=== PATIENT | male | born 1975 | race African-American/Black ===

== ENCOUNTER 2016-04-20 10:48 | Observation (INO) ==
[2016-04-20] MEDS ORDERED: CeFAZolin Pre 2,000 MG/100 ML 2,000 MG/100 ML BAG IVPB ONE (11:00)
[2016-04-20] MEDS ORDERED: Ringers Solution, Lactated 1,000 ML IVC SCH (11:00)
[2016-04-20] MEDS ORDERED: Albuterol 2.5 MG/3 ML NEBULIZER IH ONE (11:00)
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
--- NOTE | 2016-04-20 11:26 | History & Physical Report ---
Date of Encounter: 04/20/16 Time of Encounter: 11:26 24 Hour HP Update - Instructions Instructions: If the History and Physical is less than 30 days old and was completed prior to A.M. admission and or procedure and has NOT been updated on calendar day of procedure please complete this update prior to performing procedure. - Update Patient reports changes in Medical Condition: No Changes in assessment/condition: No Changes in Medication: No Preop tests/diagnostics Reviewed: Yes Pre-Op MRSA Screen: Negative Surgery Remains Indicated: Yes Consent for Planned Operative Procedure(s) Verified: Yes - Pre-Operative Checklist Preoperative Checklist Indicated: No Prophylactic Antibiotic Ordered: Yes Home Medications Include Beta Khalida: No Beta Khalida Taken Today (Day of Surgery): No Beta Khalida Taken Yesterday (Day Prior to Surgery): No Is VTE Prophylaxis Indicated?: NO
--- NOTE | 2016-04-20 11:28 | Discharge Summary ---
Outpatient Proc Discharge Plan - Plan Additional Instructions: May shower in two days. Prescriptions: OxyCODONE/APAP 10/325 [Percocet 10/325 MG] 1 each PO Q6HR PRN #26 tablet PRN Reason: Pain Home Medications: Ciprofloxacin [Cipro] 500 mg PO BID #14 tablet 01/16/15 [Rx] MetroNIDAZOLE [Flagyl] 500 mg PO BID #14 tablet 01/16/15 [Rx] OxyCODONE/APAP 5/325 [Percocet 5/325] 1 each PO Q4HR PRN #15 tablet 01/17/15 [Rx ] Naproxen [Naprosyn] 500 mg PO BID #20 tablet 03/14/15 [Rx] OxyCODONE/APAP 10/325 [Percocet 10/325 MG] 1 each PO Q6HR PRN #26 tablet [Rx]
[2016-04-20] MEDS ORDERED: *HR* Propofol 200 MG/20 ML VIAL IVP ONE (11:46)
[2016-04-20] MEDS ORDERED: *HR* FentaNYL (PF) 100 MCG/2 ML VIAL ONE ×2 (11:46→12:31)
[2016-04-20] MEDS ORDERED: *HR* Rocuronium Bromide 50 MG/5 ML VIAL ONE (11:47)
[2016-04-20] MEDS ORDERED: Lidocaine -MPF 2% 2 ML VIAL ONE (11:47)
[2016-04-20] MEDS ORDERED: Ondansetron 4 MG/2 ML VIAL ONE (11:47)
[2016-04-20] MEDS ORDERED: *HR* Midazolam HCl 2 MG/2 ML VIAL ONE (11:47)
[2016-04-20] MEDS ORDERED: Dexamethasone 4 MG/ML VIAL ONE (11:47)
[2016-04-20] MEDS ORDERED: *HR* Succinylcholine 200 MG/10 ML VIAL IVP ONE (11:47)
[2016-04-20] MEDS ORDERED: Bupivacaine/EPI 1:200k 0.25%PF 30 ML VIAL ONE (12:09)
[2016-04-20] MEDS ORDERED: *HR* OxyCODONE/APAP 10/325 TABLET PO ONE (12:37)
[2016-04-20] MEDS ORDERED: *HR* Promethazine 25 MG/ML VIAL IVP PRN (12:40)
--- NOTE | 2016-04-20 12:41 | Operative Note ---
Date of procedure: 04/20/16 Pre-op diagnosis: Recurrent pilonidal cyst Post-op diagnosis: same Procedure: Deep debridement of recurrent pilonidal cyst Anesthesia: TARI Surgeon: Tu Dunbar Plastic Cutter: Kelly Miller Plastic Cutter Other: DONNA Dunn Condition: stable Disposition: PACU Procedure in Detail: Date of surgery: 04/20/16 After properly identifying the patient, the patient was brought to the operative room and placed in supine position. After proper sedation was achieved followed by general endotracheal intubation, the patient was placed in a prone position and the pilonidal region was prepped and draped in normal fashion. A timeout was performed noting the patient's name and procedure to be performed. Examination demonstrated what initially appeared to be a healed pilonidal cystectomy wound, however there was a small opening present over the epithelial tissue and probing demonstrated that this was a superficial epithelial tissue covering a cavity where granulation tissue was present. The decision was made to go ahead and excise this old granulation tissue by incising the oval area with a 15 blade scalpel. Bovie cauterization was then used to maintain hemostasis and dissect out this old scar/granulation tissue down to its origin in the deep subcutaneous tissue overlying the periosteum of the sacrum. Tissue was excised for pathological evaluation and Bovie cauterization was used to maintain hemostasis. The length of the wound was approximately 3.4 x 1.5 x 1.5 cm. The wound was packed with one-inch plain Nu Gauze and cover with 4 x 4 gauze. Needle, sponge, and instrument counts were correct 2 and the patient was transported to the stretcher in a supine position. The patient was aroused by IV sedation, extubated in the operating room without complication, and transported to the recovery room in stable condition.
[2016-04-20] MEDS: *HR* HYDROmorphone (PF) 1 MG/ML SYRINGE IVP PRN ×2 (13:10→13:20)
[2016-04-20] MEDS ORDERED: Aspirin 325 MG TABLET PO ONE (14:00)
[2016-04-20] MEDS ORDERED: Aspirin 325 MG TABLET ONE (14:02)
--- NOTE | 2016-04-20 15:39 | Event Note ---
Date of Encounter: 04/20/16 Time of Encounter: 15:35 Patient with post operative chest pain symptoms. Anesthesia had an opportunity to talk with Cardiolgoy regarding the patient, who ordered an EKG which did note mild T wave changes. Patient's father does have a history of [place] prior to age 50. Repeat EKG demonstrated same changes. The recommendation is to keep him overnight. Cardiology formally consulted. Patient to be placed on observation/telemetry.
--- NOTE | 2016-04-20 15:42 | Cardiology Consult Note ---
Date of Encounter: 04/20/16 Time of Encounter: 16:00 Assessment and Plan (1) Chest pain Current Visit: Yes Status: Acute Ruleout UT w serial troponin. If elevated, start anticoagulation. He was given aspirin. Pretest probability is intermediate given risk factors. Qualifiers: Chest pain type: chest pain due to myocardial ischemia Ischemic chest pain type: unstable angina pectoris Qualified Code(s): I20.0 - Unstable angina (2) Dyslipidemia Current Visit: Yes Status: Acute Patient to be initiated on statin therapy. (3) Pilonidal abscess Current Visit: Yes Status: Acute s/p surgery Discussion w patient/family: The assessment and plan as outlined above was discussed with the patient and/or family members who expressed understanding and agreement. All questions were answered. Thank you for involving us in the care of your patient. Please call with any questions. History of Present Illness Consult date: 04/20/16 Consult reason: Chest pain History of present illness: Mr. Yeung is a 41 year old male with no previous cardiac history who is immediately postop from pilonidal abscess surgery. He has complaint of severe retrosternal chest discomfort described as a pressure that has improved with time and aspirin down to a 5/10 but it persists. He notes this chest discomfort every other day over last year and is uncertain if it is worsening. He seems to minimalize symptoms. He notes remote stress test without ischemia. He did not admit to these symptoms prior to surgery. The discomfort has radiation across the chest. He is sedentary with his "physical activity" consisting of playing video games on a playstation. He also has dyslipidemia, was a smoker and has premature family history. Past Med Surg Social Fam HX - Past Medical History Medical history: hyperlipidemia, other Psychiatric history: no psych history - Past Surgical History Surgical History: other - Social History Smoking Status: Current some day smoker Packs per day: using nicotine patch to quit Smokeless Tobacco Status: No Alcohol use: none Drug use: none - Family History Father Hx Family Cardiac Disorders: Yes (Heart dx) Medications and Allergies Atorvastatin Calcium [Lipitor] 20 mg PO DAILY 04/20/16 [History] BuPROPion SR (12 HR) [Wellbutrin SR] 150 mg PO BID 04/20/16 [History] Nicotine Patch [Nicoderm] 14 mg TD DAILY 04/20/16 [History] OxyCODONE/APAP 10/325 [Percocet 10/325 MG] 1 each PO Q6HR PRN #26 tablet [Rx] Allergies No Known Allergies Allergy (Unverified 11/15/14 18:40) All Systems Review: A 10-system review of systems was performed and is negative for pertinent findings except as documented above in the HPI. - Constitutional Constitutional: no chills, no fever(s) - EENT Eyes: no blurred vision, no loss of vision Nose, mouth and throat: no bleeding gums, no epistaxis - Cardiovascular Cardiovascular: chest pain at rest, no diaphoresis, no syncope - Respiratory Respiratory: no dyspnea, no hemoptysis - Gastrointestinal Gastrointestinal: no coffee ground emesis, no hematemesis - Genitourinary Genitourinary: no dysuria, no hematuria - Musculoskeletal Musculoskeletal: no arthralgias, no myalgias - Integumentary Integumentary: no erythema, no rash - Neurological Neurological: no focal weakness, no loss of vision - Psychiatric Psychiatric: no anxiety, no depression - Hematological/Lymphatic Hematologic/Lymphatic: no easy bleeding, no easy bruising Physical Examination Vital Signs, Last 4 Hours Temp Pulse Resp BP Pulse Ox 04/20/16 15:15 79 16 128/88 99 04/20/16 14:45 97.7 F 74 16 133/89 99 04/20/16 14:15 79 16 117/82 97 04/20/16 13:45 97.7 F 86 16 118/87 94 L 04/20/16 13:38 97.9 F 81 18 106/85 93 L 04/20/16 13:28 97.8 F 90 20 116/90 94 L 04/20/16 13:18 95 22 108/83 96 04/20/16 13:08 98 22 109/82 93 L 04/20/16 13:03 118 20 138/90 94 L 04/20/16 12:58 97.8 F 110 20 127/94 100 General: Conversant HEENT: Atraumatic, Normocephaly Neck: No JVD Cardiac: Reg Rate and Rhythm Lungs: Normal Breath Sounds Neuro: Alert and responsive Abdomen: Soft Skin: No rashes noted on visualized skin Extremities: No Edema Results 04/21/16 03:37 04/21/16 03:37 Consult Discharge Plan - Plan Additional Instructions: May shower in two days. Referrals: Ifeoma Carpio CNP [Primary Care Provider] - Prescriptions: OxyCODONE/APAP 10/325 [Percocet 10/325 MG] 1 each PO Q6HR PRN #26 tablet PRN Reason: Pain
--- NOTE | 2016-04-20 15:46 | Anesthesia Evaluation Post Op ---
Date of Encounter: 04/20/16 Time of Encounter: 15:44 - Vital Signs Vital Signs: Vital Signs/O2 Sat, Most Current Temp Pulse Resp BP Pulse Ox 97.7 F 79 16 128/88 99 04/20/16 14:45 04/20/16 15:15 04/20/16 15:15 04/20/16 15:15 04/20/16 15:15 - Lungs Lungs: Clear Ascult./Percussion - Airway Airway: Non-obstructed - Cardiovascular New Rhythm, Treatment Ordered - Mental Status Mental Status: Alert & Oriented, Answers Appropriately - Pain Pain Scale: 6 (Chest pain, admitted with cardiology consult) Pain Scale used: Numeric (1 - 10) - Nausea Vomiting Nausea Vomiting: Not Present - Hydration Hydration: Tolerates oral liquids, Has not voided - Discharge PostOp Status: Transfer Patient to floor ([id number])
[2016-04-20] MEDS ORDERED: Ondansetron 4 MG/2 ML VIAL IVP PRN (17:02)
[2016-04-20] MEDS: 0.9 % Sodium Chloride 1,000 ML IVC SCH (18:27)
[2016-04-20] MEDS: *HR* Heparin 5,000 UNIT/ML VIAL SQ SCH (18:28)
[2016-04-20] MEDS: *HR* OxyCODONE/APAP 10/325 TABLET PO PRN (18:33)
[2016-04-21 05:10] LABS: Basophils % 0.2 %; Eosinophils % 0.3 %; Hemoglobin 13.7 g/dL (12.9-16.9); Immature Granulocytes % 0.2 % (0-4); Lymphocytes # 1.3 K/mcL (0.6-4.6); Lymphocytes % 13.2 %; Mean Corpuscular HGB Conc 33.4 g/dL (31.6-35.5); Mean Corpuscular Hemoglobin 30.6 pg (28.0-33.3); Mean Corpuscular Volume 91.7 fL (83.0-100.0); Mean Platelet Volume 11.4 fL (9.4-12.4); Monocytes # 0.7 K/mcL (0.0-1.3); Monocytes % 6.8 %; Neutrophils # 7.6 K/mcL (1.6-8.9); Platelet Count 253 K/mcL (140-400); Red Blood Count 4.47 M/mcL (4.19-5.50); Red Cell Distribution Width 12.4 % (11.5-14.5); Segmented Neutrophils % 79.3 %
[2016-04-21 05:23] LABS: BUN/Creatinine Ratio 8 (6-26); Blood Urea Nitrogen 10 mg/dL (8-26); Calcium 9.1 mg/dL (8.6-10.8); Carbon Dioxide 23 mEq/L (19-29); Chloride 106 mEq/L (98-109); Glucose 118 mg/dL (70-99); Osmolality,Calculated 292 (280-300); Potassium 4.3 mEq/L (3.5-4.5); Sodium 141 mEq/L (136-145); eGFR For African Americans > 60 (> 60); eGFR For Non-African Americans > 60 (> 60)
[2016-04-21] MEDS: *HR* Heparin 5,000 UNIT/ML VIAL SQ SCH ×2 (05:47→19:07)
[2016-04-21] MEDS: *HR* OxyCODONE/APAP 10/325 TABLET PO PRN ×2 (08:40→18:16)
[2016-04-21] MEDS ORDERED: Pantoprazole 40 MG VIAL IVP SCH (09:00)
--- NOTE | 2016-04-21 11:33 | General Surgery Progress Note ---
<Jan Arellano - Last Filed: 04/21/16 11:31> Date of Encounter: 04/21/16 Time of Encounter: 08:50 - Assessment and Plan (1) Pilonidal abscess Current Visit: Yes Status: Acute Post op day #1 Status post deep debridement of recurrent pilonidal cyst Continue dressing changes. Continue DVT prophylaxis Continue GI prophylaxis (2) Chest pain Current Visit: Yes Status: Acute Nuclear stress test planned for tomorrow. Qualifiers: Chest pain type: chest pain due to myocardial ischemia Ischemic chest pain type: unstable angina pectoris Qualified Code(s): I20.0 - Unstable angina (3) Dyslipidemia Current Visit: Yes Status: Acute Management per cardiology. Patient started on Crestor. Subjective Patient reports: no new complaints, feels better, voiding w/o difficulty, flatus , no bowel movement, afebrile Narrative: The patient denies having any chest pain this morning. Objective Vital Signs - Last 8 Hours Temp Pulse Resp BP Pulse Ox 04/21/16 07:56 97.9 F 85 20 126/74 94 L 04/21/16 04:12 97.4 F L 67 16 109/62 96 Intake and Output 04/20/16 04/21/16 04/21/16 23:59 07:59 15:59 Other: Meal NPO for breakfast Weight 109.769 kg - General physical appearance well developed, well nourished, no distress - Eyes normal ocular movement - ENT normal mucosa - Neck Neck exam: trachea midline - Respiratory normal respiratory effort, clear to auscultation - Cardiovascular Cardiovascular exam: Present: RRR - Abdomen Abdomen: Present: bowel sounds present, soft, non tender - Integumentary no rash - Neurologic CN 2-12 grossly intact - Musculoskeletal normal posture - Psychiatric oriented to time, oriented to person, oriented to place, speech is normal, memory intact - Labs 04/21/16 03:37 04/21/16 03:37 Diabetes panel 04/21/16 Range/Units 03:37 Sodium 141 (136-145) mEq/L Potassium 4.3 (3.5-4.5) mEq/L Chloride 106 (98-109) mEq/L Carbon Dioxide 23 (19-29) mEq/L BUN 10 (8-26) mg/dL Creatinine 1.30 H (0.72-1.25) mg/dL Glucose 118 H (70-99) mg/dL Calcium 9.1 (8.6-10.8) mg/dL Calcium panel 04/21/16 Range/Units 03:37 Calcium 9.1 (8.6-10.8) mg/dL Pituitary panel 04/21/16 Range/Units 03:37 Sodium 141 (136-145) mEq/L Potassium 4.3 (3.5-4.5) mEq/L Chloride 106 (98-109) mEq/L Carbon Dioxide 23 (19-29) mEq/L BUN 10 (8-26) mg/dL Creatinine 1.30 H (0.72-1.25) mg/dL Glucose 118 H (70-99) mg/dL Calcium 9.1 (8.6-10.8) mg/dL Adrenal panel 04/21/16 Range/Units 03:37 Sodium 141 (136-145) mEq/L Potassium 4.3 (3.5-4.5) mEq/L Chloride 106 (98-109) mEq/L Carbon Dioxide 23 (19-29) mEq/L BUN 10 (8-26) mg/dL Creatinine 1.30 H (0.72-1.25) mg/dL Glucose 118 H (70-99) mg/dL Calcium 9.1 (8.6-10.8) mg/dL - VTE Documentation of Mechanical Device: Intermittent pneumatic compression device Consult Discharge Plan - Plan Additional Instructions: May shower in two days. Referrals: Ifeoma Carpio, DIRECTOR OF MARKET ANALYSIS [Primary Care Provider] - Prescriptions: OxyCODONE/APAP 10/325 [Percocet 10/325 MG] 1 each PO Q6HR PRN #26 tablet PRN Reason: Pain - Attending Attestation I examined this patient and my medical decision-making was reviewed with the PUMP OPERATOR [employer]/PA/Advanced Practice Nurse/Resident Physician. I agree with the documented findings, disposition and treatment plan as described except to the extent set forth below. <Tu Dunbar - Last Filed: 04/21/16 13:11> Objective Vital Signs - Last 8 Hours Temp Pulse Resp BP Pulse Ox 04/21/16 11:43 98.0 F 67 16 118/72 95 04/21/16 07:56 97.9 F 85 20 126/74 94 L Intake and Output 04/20/16 04/21/16 04/21/16 23:59 07:59 15:59 Other: Meal NPO for breakfast Weight 109.769 kg - Labs 04/21/16 03:37 04/21/16 03:37 Diabetes panel 04/21/16 Range/Units 03:37 Sodium 141 (136-145) mEq/L Potassium 4.3 (3.5-4.5) mEq/L Chloride 106 (98-109) mEq/L Carbon Dioxide 23 (19-29) mEq/L BUN 10 (8-26) mg/dL Creatinine 1.30 H (0.72-1.25) mg/dL Glucose 118 H (70-99) mg/dL Calcium 9.1 (8.6-10.8) mg/dL Calcium panel 04/21/16 Range/Units 03:37 Calcium 9.1 (8.6-10.8) mg/dL Pituitary panel 04/21/16 Range/Units 03:37 Sodium 141 (136-145) mEq/L Potassium 4.3 (3.5-4.5) mEq/L Chloride 106 (98-109) mEq/L Carbon Dioxide 23 (19-29) mEq/L BUN 10 (8-26) mg/dL Creatinine 1.30 H (0.72-1.25) mg/dL Glucose 118 H (70-99) mg/dL Calcium 9.1 (8.6-10.8) mg/dL Adrenal panel 04/21/16 Range/Units 03:37 Sodium 141 (136-145) mEq/L Potassium 4.3 (3.5-4.5) mEq/L Chloride 106 (98-109) mEq/L Carbon Dioxide 23 (19-29) mEq/L BUN 10 (8-26) mg/dL Creatinine 1.30 H (0.72-1.25) mg/dL Glucose 118 H (70-99) mg/dL Calcium 9.1 (8.6-10.8) mg/dL - Attending Attestation Patient denies ay issues with chest pain or pain from the pilonidal area. to perform dressing changes. Await results of nuclear stress test to be performed at 130pm.
--- NOTE | 2016-04-21 11:58 | Electrocardiograph Report ---
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
[2016-04-21] MEDS ORDERED: *HR* Midazolam HCl 2 MG/2 ML VIAL ONE (14:36)
[2016-04-21] MEDS ORDERED: Heparin 1,000 UNITS/500 mL NS 500 ML ONE (14:37)
[2016-04-21] MEDS ORDERED: 0.9 % Sodium Chloride 1,000 ML ONE ×2 (14:37→15:24)
[2016-04-21] MEDS ORDERED: *HR* FentaNYL (PF) 100 MCG/2 ML VIAL ONE (14:37)
[2016-04-21] MEDS ORDERED: *HR* Heparin 10,000 UNIT/10 ML VIAL ONE (14:37)
[2016-04-21] MEDS ORDERED: Nitroglycerin 1,000 MCG/10 ML VIAL IV ONE (14:37)
[2016-04-21 15:17] LABS: Prothrombin Time 11.1 Seconds (9.4-12.1)
--- NOTE | 2016-04-21 15:49 | Exercise Stress Test ---
Dobutamine Stress Echo No Doppler Name: Lior Yeung Date of Study: 04/21/2016 Date: 1975 Ht: 73.0in Medical Record#: [id number] Age: 41 Wt: 240.0lb Gender: Male BSA: 2.33 Order #: [id number] Location: [facility] Room #: 3B54 Reading Physician: Noel Meza MD, [facility] Office Auditor: Shazia Pop RDCS, RVT Supervising Provider: Rashid Beach CNP Primary Physician: Ifeoma Carpio CNP Ordering Physician: Andrew Shaw MD, [facility] Indications: Chest pain Impressions: Normal left ventricular systolic function, LVEF 60%. After 3 minutes of low dose dobutamine, the patient developed moderate chest pain. ECG demonstrated sinus bradycardia (53 bpm) with non-specific ST-T wave changes. The study was stopped. Only resting echo images were obtained. Ordering physician (Dr. Shaw) was notified. Findings: Stress Echo * Baseline ECG demonstrated sinus rhythm, mild non-specific ST-T wave abnormality. * No arrhythmias noted prior to exam beginning. * Normal left ventricular systolic function, LVEF 60%. * After 3 minutes of low dose dobutamine, the patient developed moderate chest pain. ECG demonstrated sinus bradycardia (53 bpm) with non-specific ST-T wave changes. The study was stopped. Only resting echo images were obtained. Left Ventricular Wall Motion: Rest Echo Findings All wall segments showed normal motion. Stress Test Summary: Stress System: Antonio Stress Test Type: Pharmacologic Baseline Information: Initial Heart Rate: 66 Predicted Max HR: 178 Blood Pressure: 120 / 76 Stress Information: Test Terminated Due to: Chest pain Maximum Blood Pressure: 160/ 68 Maximum Heart Rate: 70 Percent Maximum Heart Rate Achieved: 39 Double Product: [id number] History: Hypercholesteremia History of Smoking Packs 20 Years 1 Family History of CAD Previous Echo03/18/2014 Updated by Noel Meza MD, [facility] on 04/21/2016 3:42:03 PM electronically signed on 04/21/2016 3:43:45 PM with status of Final
--- NOTE | 2016-04-21 16:03 | Invasive Diagnostic Lab Proc ---
Name: Lior Yeung Date of Study: 04/21/2016 Date: 1975 Ht: 72.8in Medical Record#: [id number] Age: 41 Wt: 240.74lb Gender: Male BSA: 2.32 Order #: [id number] BMI: 31.94 Physicians Procedure Physician: Florence Pal MD, [facility] Referring MD: Referring MD: Staff Name Position Time In Sarah Jaquez RT (R) Monitor 03:28 PM Santi Jaimes RN Sales Marketing Manager 03:28 PM Marita Walsh RT Scrub 03:28 PM Indications Indication Abnormal Test - Stress Procedures Performed Procedure L HRT ARTERY/VENTRICLE ANGIO Pre-Procedure Checklist Informed consent is complete signed and on chart. H\\T\\P is on chart. ID band is on and ID verified with patient. Patient NPO for procedure The procedure was described for the patient and questions were answered. Blood Pressure: 118/73 ECG is on chart. Rhythm: NSR Plan of Care Patient will tolerate the procedure without complications. Adequate level of comfort will be maintained. Hemodynamics will remain stable Patient will recover from procedure without complications. Respiratory function will be maintained. Cardiac rhythm will remain stable. Patient temperature will be maintained. Patient and/or family have verbalized understanding of the procedure. Patient Education Chief Complaint/Reason for Test: Cardiac Cath Developmental Category: Adult (18-64 years) Developmentally Appropriate for Age: Yes Learning Barriers: None Education Needs: Procedure Education Method: Verbal Information Taught: Cardiac Cath Educational Evaluation: Able to repeat information Intravenous Access Time IV Size Location DC'd Fluid/Drip Rate Units RN 02:46 PM 20g 1 02/24" Patent On Arrival Lt Hand 0.9NaCl 25 ml/hr Santi Jaimes RN Allergies No Known Allergies Vital Signs Time BP (mmHg) HR (bpm) O2 Sat. RR (bpm) LOC 02:46 PM 118 / 72 67 95 % 16 03:29 PM / % 5 = Fully awake and oriented or at pre-proc level 03:28 PM 133 / 93 64 100 % 03:33 PM 133 / 81 72 98 % 25 03:38 PM 132 / 80 68 100 % 27 03:43 PM 136 / 87 67 99 % 27 03:48 PM 132 / 85 65 99 % 22 Procedural Medications Time Medication Dose Units Method Given By 03:29 PM Oxygen 2 L/min nasal cannula Santi Jaimes RN 03:29 PM Versed 2 mg Intravenous Santi Jaimes RN 03:29 PM Fentanyl 50 mcg Intravenous Santi Jaimes RN 03:35 PM Lidocaine 2% 20 ml Subcutaneous Florence Pal MD, [facility] ASA Classification: CLASS II- Mild systemic disease (i.e. well-controlled diabetes, hypertension, asthma, cigarette smoking) Jl Score Preprocedure Postprocedure Activity 2- Moves 4 extremities sustained head lift Activity 2- Moves 4 extremities sustained head lift Circulation 2- SBP +/= 20 points of pre-anesthetic level Circulation 2- SBP +/= 20 points of pre-anesthetic level Consciousness 2- Awake and alert oriented x 3 Consciousness 2- Awake and alert oriented x 3 O2 Saturation 2- Able to maintain O2 satruation of 92% on room air O2 Saturation 2- Able to maintain O2 satruation of 92% on room air Respiratory 2- Able to deep breathe and cough well Respiratory 2- Able to deep breathe and cough well Total Score 10 Total Score 10 Contrast Agent: Isovue Diagnostic Contrast: 57 ml Total Contrast: 57 ml Fluoro Dose: 293 mGy Procedure Log Time Note Enter By 03:27 PM CathStat 03: PM Vitals capture started with the following parameters, Patient=Adult, Interval=5 min, Initial Zubeweuj=697 mmHg, Deflation Rate=5 mmHg, Cuff placed on Left Arm 03: PM HR=64 bpm, UPAC=356/93 mmhg, PiA1=538.0 % 03: PM Pt arrived to laboratory immunologist 2 at 15:28 twilson : PM Physician arrived 15:28 : PM Meet and greet completed : PM Sign in performed according to hospital policy. : PM Procedure start 15:28 ilson :28 PM ASA Class CLASS II- Mild systemic disease (i.e. well-controlled diabetes, hypertension, asthma, cigarette smoking) tw:28 PM Patient charges- Angio tray pack, Navilyst 3mm J, Pulse Oximetry and ACIST tubing and transducer twilson :28 PM IV Supplies used: J loop Angio Cath. tw 03:28 PM Sraah Jaquez RT (R) Position: Monitor Time in: 15:28 :28 PM Santi Jaimes RN Position: Sales Marketing Manager Time in: 15: 03: PM Marita Walsh Position: Scrub Time in: 15: 03: PM Case Delayed no PM Time: 15: Oxygen on at 2 L/min per nasal cannula by Santi Jaimes RN : PM Time: 15:29 Patient comfortable and pain free: Yes : PM Time: 15:29LOC: 5 = Fully awake and oriented or at pre-proc level tw: PM Time: 15:29 Versed 2 mg Intravenous Given by Santi Jaimes RN arnaldo : PM Time: 15:29 Fentanyl 50 mcg Intravenous Given by Santi Jaimes RN arnaldo 03:30 PM Hair removed from procedure site in procedure lab using clippers. Bilateral groin prepped with Chloraprep by Sarah Storey (R), safety strap applied then patient was draped. Skin intact. tw 03:31 PM Recorded ECG: HR=71 Condition=Condition 1 03:33 PM HR=72 bpm, HSUN=913/81 mmhg, SpO2=98.0 %, Resp=25 B/min 03:35 PM Time out performed according to hospital policy ts 03:35 PM Time: 15:35 20 ml Lidocaine 2% to right groin Subcutaneous Given by Florence Pal MD, [facility] tsites 03:38 PM Access obtained by percutaneous puncture. 5Fr 10cm Terumo Spencer sheath placed in right Femoral artery. [id number] tsites 03:38 PM HR=68 bpm, OXVG=340/80 mmhg, HhD6=518 %, Resp=27 B/min 03:38 PM 5Fr FL 4 catheter inserted over the wire DN tsites 03:38 PM 0.035 145cm Navilyst 3mmJ wire [id number] tsites 03:39 PM LCA angiography performed in multiple views. tsites 03:39 PM Recorded Pressure: Ao, HR=66, Condition=Condition 1 (Aorta) Ao 62/45/53 03:40 PM wire reinserted catheter removed tsites 03:41 PM RCA angiography performed in multiple views. tsites 03:42 PM wire reinserted catheter removed tsites 03:42 PM 5Fr Pigtail catheter inserted over the wire DNC tsites 03:43 PM HR=67 bpm, LYHN=701/87 mmhg, SpO2=99.0 %, Resp=27 B/min 03:43 PM Pressure channel 1 zeroed. 03:43 PM Recorded Pressure: LV, HR=71, Condition=Condition 1 (Left Ventricle) LV 107/8/13 03:43 PM Catheter selectively placed in left ventricle tsites 03:43 PM Bolus angiogram of left Ventricle complete: 8 ml/sec for a total of 24 mls tsites 03:43 PM Recorded Pressure: LV, Ao, HR=67, Condition=Condition 1 (Left Ventricle) LV 121/40/55, (Aorta) Ao 111/88/100 03:44 PM Catheter removed tsites 03:44 PM Coronary Dominance: right tsites 03:44 PM Bolus angiogram of right Femoral complete: 2 ml/sec for a total of 4 mls tsites 03:45 PM Procedure completed at 15:45 tsites 03:45 PM Sign out completed: Radiation Dose 293 mGy Fluoro Time: 1.2 Isovue 370 - 200ml contrast 57 ml given by Florence Pal MD, [facility]. Complications: NoneCardiac Rehab Consult needed: NoConfirmed administered medications: Yes tsites 03:45 PM Isovue 370 - 200ml,1 Bottle(s) used. tsites 03:45 PM Arterial sheath pulled, Mynx closure device used and was Successful S/N. tsites 03:45 PM Post ECG NSR tsites 03:46 PM Post Blood Pressure 136/87 tsites 03:46 PM 15:46 Post Pulses Bilateral DP \\T\\ PT 2+ tsites 03:46 PM Information taught Cardiac Cath and Mynx tsites 03:46 PM Education needs Procedure, Plan of Care, and Responsibilities of Patient in Care tsites 03:46 PM Learning barriers :None tsites 03:46 PM Education Methods Verbal tsites 03:47 PM Education evaluation Able to repeat information tsites 03:48 PM HR=65 bpm, DZND=173/85 mmhg, SpO2=99.0 %, Resp=22 B/min 03:52 PM Site status No bleeding/hematoma - Rt Groin as reported by Marita Walsh RT at 15:51 tsites 03:52 PM Opsite applied tsites 03:53 PM Delay to floor No tsites 03:53 PM Patient out of room: 15:53 tsites 03:53 PM Report given to china SEGURA Pt taken to 3B Room #54. 15:53 tsites Complications Complication None Hemodynamics Pressures Site Systolic/A Wave Diastolic/V Wave Mean AO 62 45 53 LV 107 8 13 LV 121 40 55 AO 111 88 100 Post Procedure Information Blood Pressure: 136/87 mmHg Rhythm: NSR Post procedural instructions were given Closure Device Time Device Success/Fail 04/21/2016 3:54:00 PM MynxGrip Successful Site Checks Time Location Status Staff Sheath In? Note 03:51 PM Rt Groin No bleeding/hematoma Marita Walsh RT Pulses Time Site Pre-Procedure Post-Procedure Note 04/21/2016 2:46:00 PM Bilateral DP \\T\\ PT 2+ 04/21/2016 2:46:00 PM Bilateral radial 2+ 3:46:00 PM Bilateral DP \\T\\ PT 2+ Updated by Sarah Raleigh RT (R) on 04/21/2016 3:57:52 PM [facility], RT electronically signed on 04/21/2016 3:58:20 PM with status of Final
--- NOTE | 2016-04-21 16:03 | Event Note ---
Date of Encounter: 04/21/16 Time of Encounter: 16:00 - Cardiology Event Note Normal coronaries on LHC. Can be discharged this evening after 6pm. Thank you for the consul.t
--- NOTE | 2016-04-21 16:10 | Invasive Diagnostic Lab ---
Name: Lior Yeung Date of Study: 04/21/2016 Date: 1975 Ht: 184.9 cm /72.8 in Medical Record#: [id number] Age: 41 Wt: 109.2 kg / 240.74 lb Account/Order#: [id number] Gender: Male BSA: 2.32 Order #: [id number] Fluoro Dose: 293 mGy BMI: 31.94 Procedure Physician: Florence Pal MD, [facility] Referring MD: Referring MD: Procedures Performed: LEFT HEART CATH Indications: Abnormal Test - Stress Impressions: Coronary arteries are angiographically normal. The left ventricle is normal and has normal contractility EF 60% Recommendations: Optimal medical therapy of patient's disease. Aggressive risk factor modification. History/Risk Factors: Dyslipidemia Current/Recent Smoker Family History of CAD Procedure Access obtained in the right Femoral artery by percutaneous puncture Complications: None Contrast: Isovue 57ml Closure Device: MynxGrip Hemodynamics: Pressures Site Systolic/ A Wave Diastolic/ V Wave End Diastolic/ Mean HR AO 62 45 53 66 LV 107 8 13 71 LV 121 40 55 67 AO 111 88 100 67 LV Ventriculography Ejection Method: LV Gram Ejection Fraction: 60% Wall Motion: CABALLERO Anterobasal Normal Anterolateral Normal Apical: Normal Inferoapical Normal Inferobasal Normal Coronary Dominance: right Lesion Findings/Interventions * Left Main Coronary Artery The LMCA is angiographically free of disease. * Left Anterior Descending The LAD is angiographically free of disease. The 1st Diagonal is angiographically free of disease. * Circumflex The Circumflex is angiographically free of disease. The 1st Marginal is angiographically free of disease. * Right Coronary Artery The RCA is angiographically free of disease. The Right PDA is angiographically free of disease. Updated by Sarah Storey, RT (R) on 04/21/2016 3:57:18 PM Florence Pal MD, FACC electronically signed on 04/21/2016 4:05:32 PM with status of Final
[2016-04-21] MEDS: 0.9 % Sodium Chloride 1,000 ML IVC SCH (16:36)
--- NOTE | 2016-04-21 16:43 | Discharge Summary ---
<Jan Arellano - Last Filed: 04/21/16 16:35> Date of Encounter: 04/21/16 Time of Encounter: 16:30 - Discharge Diagnosis (1) Pilonidal abscess Priority: Secondary Status: Acute (2) Chest pain Priority: Primary Status: Acute Qualifiers: Chest pain type: chest pain due to myocardial ischemia Ischemic chest pain type: unstable angina pectoris Qualified Code(s): I20.0 - Unstable angina (3) Dyslipidemia Priority: Secondary Status: Acute - Discharge Medications Home Medications: Atorvastatin Calcium [Lipitor] 20 mg PO DAILY 04/20/16 [History] BuPROPion SR (12 HR) [Wellbutrin SR] 150 mg PO BID 04/20/16 [History] Nicotine Patch [Nicoderm] 14 mg TD DAILY 04/20/16 [History] OxyCODONE/APAP 10/325 [Percocet 10/325 MG] 1 each PO Q6HR PRN #26 tablet [Rx] Allergies/Adverse Reactions: Allergies No Known Allergies Allergy (Unverified 11/15/14 18:40) General Surgery Exam Initial Vital Signs Temp Pulse Resp BP Pulse Ox 98.3 F 73 18 128/86 97 04/20/16 11:01 04/20/16 11:01 04/20/16 11:01 04/20/16 11:01 04/20/16 11:01 - General physical appearance well developed, well nourished, no distress - Eyes normal ocular movement - ENT normal mucosa, atraumatic, normocephalic - Neck trachea midline - Respiratory normal respiratory effort, clear to auscultation - Cardiovascular Cardiovascular exam: Present: RRR - Abdomen Abdomen general surgery: Present: bowel sounds present, soft, non tender - Integumentary Integumentary general surgery: Present: warm and dry - Neurologic Present: CN 2-12 grossly intact - Musculoskeletal Present: normal posture - Psychiatric Psychiatric general surgery: Present: appropriate, oriented to person, oriented to place, oriented to time, speech is normal Primary care physician: Ifeoma Carpio CNP Consults: 04/20/16 17:02 Consult to Cardiology [CONS] Stat Comment: Consulting Provider: Cardiology [place] Reason for Consult: Chest pain s/p pilonidal cystectomy. Abnormal EKG changes. Family history PA. Time Notified: 15:43 Call Completed: Yes Discharging clinician: Tu Dunbar Anticipated date of discharge: 04/21/16 - Patient Status Disposition: Home, Self-Care Condition: Good Functional capacity at discharge: independent ambulation - Discharge Instructions Instructions: Chest Pain (DC), Left Heart Catheterization (DC), Hyperlipidemia (DC) Follow Up With: Ifeoma Carpio CNP [Primary Care Provider] - Tu Dunbar MD [Partnered Physician] - 04/28/16 10:00 am Additional Instructions: May shower in two days. No driving until off narcotics for 24 hours and able to safely react in the car. Cardio to follow up in regards to heart cath - Diet and Activity Activity: increase activity as tolerated Diet: advance to your usual diet - Hospital Course Hospital course: Mr. Yeung is a 41 year old male who came in for deep debridement of recurrent pilonidal cyst on 04/20/16. After the surgery the patient complained of postoperative chest pains. He was found to have mild T wave changes on two separate EKGs. He was recommended to be kept overnight by cardiology for additional workup and monitoring. Today 04/21/16 he was started on crestor and underwent left heart catheterization, which was found to be normal. The patient has not had any recurrent chest pains. He states that he has a followup appointment with a spot welder body assembly he sees within the next two weeks. He will be discharged in good condition with instructions to followup as an outpatient. All questions were answered and the patient is understanding and agreeable to the plan of care. - Time Spent with Patient Total time spent providing and/or coordinating discharge services: Less than 30 minutes Labs on day of discharge: Labs from last 24 hours 04/21/16 04/21/16 04/21/16 14:50 03:37 03:37 WBC RBC Hgb Hct MCV MCH MCHC RDW Plt Count MPV Immature Gran % Seg Neutrophils % Lymphocytes % Monocytes % Eosinophils % Basophils % Neutrophils # Lymphocytes # Monocytes # Eosinophils # Basophils # PT 11.1 INR 1.0 Sodium 141 Potassium 4.3 Chloride 106 Carbon Dioxide 23 BUN 10 Creatinine 1.30 H Est GFR ( Amer) > 60 Est GFR (Non-Af Amer) > 60 BUN/Creatinine Ratio 8 Glucose 118 H Calculated Osmolality 292 Calcium 9.1 Troponin I 0.00 04/21/16 04/20/16 03:37 16:23 WBC 9.6 RBC 4.47 Hgb 13.7 Hct 41.0 MCV 91.7 MCH 30.6 MCHC 33.4 RDW 12.4 Plt Count 253 MPV 11.4 Immature Gran % 0.2 Seg Neutrophils % 79.3 Lymphocytes % 13.2 Monocytes % 6.8 Eosinophils % 0.3 Basophils % 0.2 Neutrophils # 7.6 Lymphocytes # 1.3 Monocytes # 0.7 Eosinophils # 0.0 Basophils # 0.0 PT INR Sodium Potassium Chloride Carbon Dioxide BUN Creatinine Est GFR ( Amer) Est GFR (Non-Af Amer) BUN/Creatinine Ratio Glucose Calculated Osmolality Calcium Troponin I 0.02 - Attending Attestation I examined this patient and my medical decision-making was reviewed with the MICROPALEONTOLOGIST/PA/Advanced Practice Nurse/Resident Physician. I agree with the documented findings, disposition and treatment plan as described except to the extent set forth below. <Tu Dunbar M - Last Filed: 04/22/16 06:57> General Surgery Exam Initial Vital Signs Temp Pulse Resp BP Pulse Ox 98.3 F 73 18 128/86 97 04/20/16 11:01 04/20/16 11:01 04/20/16 11:01 04/20/16 11:01 04/20/16 11:01 Date of admission: 04/20/16 16:39 Primary care physician: Ifeoma Carpio CNP Consults: 04/20/16 17:02 Consult to Cardiology [CONS] Stat Comment: Consulting Provider: Cardiology [place] Reason for Consult: Chest pain s/p pilonidal cystectomy. Abnormal EKG changes. Family history PA. Time Notified: 15:43 Call Completed: Yes - Hospital Course Hospital course: Mr. Yeung is a 41 year old male - Time Spent with Patient Total time spent providing and/or coordinating discharge services: Labs on day of discharge: Labs from last 24 hours 04/21/16 14:50 PT 11.1 INR 1.0 - Attending Attestation The above assessment and post catheterization results. I agree with the above plan.
[2016-04-21 17:49] VITALS: BP 138/96
== END 2016-04-21 19:02 | disposition home or self-care (01) ==
LOC: SAMDAY 10:48 → 3BNU 10:48 → EDSTATUS 12:30 → 3BNU 15:50
PROVIDERS: ADMIT Surgery; ATTEND Surgery